=== PATIENT | female | born 1990 | race Caucasian/White ===

== ENCOUNTER 2016-07-06 12:40 | Emergency (ER) | payer OTHER ==
[2016-07-06 13:59] VITALS: BMI 21.9
--- NOTE | 2016-07-11 15:28 | OBHP ---
Datetime: 07/06/2016 09:07 IP Adm Impression: , intrauterine ; No Active Labor; Intact Membranes IP Admit Plan: Observation/Evaluation Admit Comment, IP Provider: 26-year-old 001 at 23 weeks and 2 days gestational age presents to OB ED complaining of chest pain as well as lower abdominal discomfort. Giuseppe reports feeling occasio nal chest discomfort that she reports as achy in nature. Patient denies any difficulty breathing or d yspnea. Patient denies any tachypnea. Patient denies any tachycardia. Patient denies any contractions , vaginal bleeding, leakage of fluids. Patient reports good movement. Past medical history none Past surgical history none Medications vitamins No known drug allergies Obstetrical history full-term normal spontaneous vaginal delivery 1 Social history no tobacco, no alcohol, no drugs Physical exam: Refer to physical exam findings Assessment: 26-year-old 001 at 23 weeks gestational age with complaints of chest pain. Patient without a ny obstetrical issues at this time, patient stable without any issues at this time. Patient without c omplaints at this time. Plan: Plan to transfer patient to maintain ED for evaluation as per primary physicians recommendation. Pelvic Type - PN: Adequate Extremities - PN: Normal Abdomen - PN: Normal Back - PN: Normal Breast - PN: Normal Lungs - PN: Normal Heart - PN: Normal Thyroid - PN: Normal Neurologic - PN: Normal HEENT - PN: Normal General - PN: Normal FHR - Baseline A Provider: 140s Membranes, Provider: Intact Contraction Comments Provider: none Pool Provider: Negative Vital Signs Provider: Reviewed; Within Normal Limits IP Chief Complaint: Maternal discomfort Dilatation, Provider: 0 Effacement, Provider: 0 Station, Provider: -4 Genitourinary Exam: Normal DTRs - PN: Normal
== END 2016-07-06 18:19 | disposition home or self-care (01) ==
LOC: H.EROB2 12:40
DX: O47.02 False labor before 37 completed weeks of gestation, second trimester (principal); Z3A.23 23 weeks gestation of pregnancy

== ENCOUNTER 2016-07-06 14:11 | Emergency (ER) | payer OTHER ==
[2016-07-06 14:12] VITALS: BMI 21.9
[2016-07-06 14:35] VITALS: BP 106/88; RESP 18; TEMP 98.2; O2SAT 100
[2016-07-06 15:28] LABS: BASO % 0.3 % (0.0-2.0); EOS # 0.3 K/uL (0.0-0.7); EOS % 2.5 % (0.0-4.0); HEMATOCRIT 28.6 % (34.0-47.0); LYMPH % 19.7 % (20.0-40.0); MEAN CELL VOLUME 89.5 fl (81.0-99.0); MEAN CORPUSCULAR HEMOGLOBIN 30.4 pg (27.0-31.0); MEAN PLATELET VOLUME 8.8 fl (7.2-11.7); MONO # 0.6 K/uL (0.0-0.8); MONO % 6.2 % (0.0-10.0); NEUT # 7.3 K/uL (1.8-7.0); NEUT % 71.3 % (50.0-75.0); RED CELL DISTRIBUTION WIDTH 12.6 % (11.5-14.5); WHITE BLOOD COUNT 10.3 K/uL (4.8-10.8)
[2016-07-06 15:31] LABS: RBC URINE 1 /hpf (0-3); URINE BACTERIA RARE (<OCC); URINE BILIRUBIN NEGATIVE (NEGATIVE); URINE BLOOD NEGATIVE (NEGATIVE); URINE COLOR STRAW (YELLOW); URINE GLUCOSE (UA) NEG (Normal); URINE KETONE NEGATIVE (NEGATIVE); URINE LEUKOCYTE ESTERASE NEG Leu/uL (Negative); URINE PROTEIN NEGATIVE (NEGATIVE); URINE UROBILINOGEN 0.2-1.0 mg/dL (0.2-1.0); WBC URINE 1 /hpf (0-5)
[2016-07-06 15:35] LABS: ALKALINE PHOSPHATASE 117 U/L (38-126); ALT/SGPT 25 U/L (9-52); AST/SGOT 19 U/L (14-36); BILIRUBIN,TOTAL 0.3 mg/dl (0.2-1.3); BLOOD UREA NITROGEN 9 mg/dl (7-17); CALCIUM 9.3 mg/dL (8.4-10.2); CARBON DIOXIDE 23 mmol/L (22-30); CHLORIDE 102 mmol/L (98-107); GFR AFRICAN-AMERICAN > 60; GLUCOSE,RANDOM 77 mg/dL (65-105); SODIUM 138 mmol/l (132-148); TOTAL PROTEIN 7.5 G/DL (6.3-8.2)
--- NOTE | 2016-07-06 16:44 | ED PDOC ---
HPI: General Adult Time Seen by Provider: 07/06/16 14:38 Chief Complaint (Nursing): Chest Pain Chief Complaint (Provider): L sided chest pain History Per: Patient Additional Complaint(s): Pt. states for the past 2 weeks she's had intermittent L sided chest pain which was worse on Sunday and resolved spontaneously and arose again today prompting ED visit. Further reports she's had several month hx of b/l calf pain and pain behind both thighs. Pt. is currently 23 weeks and under the care of Dr. Greer. Reports pain is non-exertional and occurs at times of rest. Denies trauma, abdominal pain, dysuria, vaginal bleeding, hx of DVT/PE, palpitations, SOB, hemoptysis, recent prolonged immobilization of limb. Past Medical History Reviewed: Historical Data, Nursing Documentation, Vital Signs Vital Signs: Last Vital Signs Temp 98.2 F 07/06/16 14:32 Pulse 78 07/06/16 16:45 Resp 18 07/06/16 14:32 BP 106/88 07/06/16 14:32 Pulse Ox 100 07/06/16 16:45 - Family History Family History: States: No Known Family Hx Denies: MS, CAD - Home Medications Home Medications: Ambulatory Orders Medication Instructions Recorded No Known Home Med 07/06/16 - Allergies Allergies/Adverse Reactions: Allergies Allergy/AdvReac Type Severity Reaction Status Date / Time No Known Allergies Allergy Verified 07/06/16 13:59 Review of Systems ROS Statement: Except As Marked, All Systems Reviewed And Found Negative Cardiovascular: Positive for: Chest Pain Musculoskeletal: Positive for: Leg Pain Physical Exam - Reviewed Nursing Documentation Reviewed: Yes Vital Signs Reviewed: Yes - Physical Exam Appears: Positive for: Well, Non-toxic, No Acute Distress Head Exam: Positive for: ATRAUMATIC, NORMAL INSPECTION, NORMOCEPHALIC Skin: Positive for: Normal Color, Warm. Negative for: Rash Eye Exam: Positive for: EOMI, Normal appearance, PERRL ENT: Positive for: Normal ENT Inspection Neck: Positive for: Normal, Painless ROM Cardiovascular/Chest: Positive for: Regular Rate, Rhythm, Chest Non Tender. Negative for: Bradycardia, Tachycardia Respiratory: Positive for: Normal Breath Sounds. Negative for: Decreased Breath Sounds, Accessory Muscle Use, Crackles, Rales, Rhonchi, Wheezing, Respiratory Distress Gastrointestinal/Abdominal: Positive for: Normal Exam, Bowel Sounds, Soft, Other (gravid). Negative for: Tenderness Back: Positive for: Normal Inspection. Negative for: L CVA Tenderness, R CVA Tenderness Extremity: Positive for: Normal ROM Neurologic/Psych: Positive for: Alert, Oriented - Laboratory Results Result Diagrams: 07/06/16 15:05 07/06/16 15:05 - ECG ECG: Positive for: Interpreted By Me ECG Rhythm: Positive for: Sinus Rhythm. Negative for: ST/T Changes Rate: 78 O2 Sat by Pulse Oximetry: 100 - Progress ED Course And Treament: Labs ordered. VQ scan ordered. Duplex b/l lower extremity ordered. VQ scan: no PE Duplex b/l lower extremity: no DVT. Of note, pt was evaluated and cleared from L&D prior to coming to ED. Disposition - Clinical Impression Clinical Impression: Chest pain - Patient ED Disposition Is Patient to be Admitted: No - Disposition Disposition: Routine/Home Disposition Time: 18:19 Condition: STABLE Additional Instructions: Follow up with your [facility] for further evaluation. Return to ED immediately if symptoms persist or worsen. Instructions: Noncardiac Chest Pain (ED)
[2016-07-06 16:45] VITALS: PULSE 78
--- NOTE | 2016-07-06 17:10 | NM ---
COMPARISON: July 06, 2016. Duplex venous sonography reported separately TECHNIQUE: Perfusion scan only. 2.92 mCI technetium 99-m MAA administered intravenously. FINDINGS: VENTILATION COMPONENT: Not performed. PERFUSION COMPONENT: Heterogeneous distribution of radionuclide. No geographic, segmental, lobar abnormalities apparent on the present examination. IMPRESSION: No evidence of pulmonary embolism. Mildly heterogeneous perfusion without focal abnormality.
--- NOTE | 2016-07-06 17:11 | US ---
PROCEDURE: Bilateral lower extremity venous duplex Doppler. HISTORY: pain COMPARISON: None available. TECHNIQUE: Bilateral common femoral, superficial femoral, popliteal and posterior tibial veins were evaluated. Flow was assessed with color Doppler, compressibility, assessment of phasic flow and augmentation response. FINDINGS: COMMON FEMORAL VEIN: Right CFV: Unremarkable. Left CFV: Unremarkable. SUPERFICIAL FEMORAL VEIN: Right SFV: Unremarkable. Left SFV: Unremarkable. POPLITEAL VEIN: Right Popliteal: Unremarkable. Left Popliteal: Unremarkable. POSTERIOR TIBIAL VEIN: Right PTV: Unremarkable. Left PTV: Unremarkable. OTHER FINDINGS: None. IMPRESSION: No evidence of deep venous thrombosis.
== END 2016-07-06 19:00 | disposition home or self-care (01) ==
LOC: H.ER 14:11
DX: R07.9 Chest pain, unspecified (principal)